=== PATIENT | male | born 1985 | race Caucasian/White ===

== ENCOUNTER → 2025-05-08 11:02 | Outpatient (CLI) | payer OTHER, SELFPAY ==
[2025-05-08 11:45] LABS: Add Manual Diff / Slide Review NO; Hematocrit 43.1 % (41-53); Hemoglobin 15.4 g/dL (13.5-17.5); Lymphocytes Absolute Auto 1200 /uL (1100-4500); Mean Corpuscular HGB Conc 35.7 % (30-36); Mean Corpuscular Hemoglobin 32.3 PG (26-34); Mean Corpuscular Volume 90.4 fL (80-100); Platelet Count 280 X10^3/uL (150-400)
[2025-05-08 12:02] LABS: Hemoglobin A1C% w Est Avg Glu 4.9 % (4.0-6.0)
[2025-05-08 12:18] LABS: Alanine Aminotransferase 40 IU/L (<50); Albumin 4.9 g/dL (3.5-5.0); Albumin Globulin Ratio 1.8 (1.0-2.8); Alkaline Phosphatase 57 U/L (38-126); Blood Urea Nitrogen 13 mg/dL (9-20); Calcium 9.7 mg/dL (8.4-10.2); Carbon Dioxide 20 mmol/L (22-32); Chloride 106 mmol/L (98-107); Cholesterol 186 mg/dL (140-199); Estimated Glomerular Filt Rate > 60 mL/min (>60); Globulin 2.8 g/dL (1.7-4.1); Glucose 104 mg/dL (70-99); HDL Cholesterol 55 mg/dL (40-60); HEMOLYSIS < 15 (0-50); Potassium 4.5 mmol/L (3.4-5.1); Sodium 138 mmol/L (137-145); Total Protein 7.7 g/dL (6.3-8.2); Triglycerides 220 mg/dL (35-150)
[2025-05-08 12:45] LABS: Thyroid Stimulating Hormone 1.31 uIU/mL (0.47-4.68)
[2025-05-08 15:22] LABS: Microalbumi Creatinin Ratio Ur 4.0 ug/mg CR (<30)
== END ==
PROVIDERS: PCP Student in an Organized Health Care Education/Training Program; Referring Provider Student in an Organized Health Care Education/Training Program; Visit Provider Student in an Organized Health Care Education/Training Program
DX: E78.00 Pure hypercholesterolemia, unspecified (principal); Z13.1 Encounter for screening for diabetes mellitus; I10 Essential (primary) hypertension
CPT/HCPCS: 36415; 80053; 80061; 82043; 82570; 83036; 84443; 85025

== ENCOUNTER → 2025-06-16 14:31 | Outpatient (CLI) | payer OTHER, SELFPAY ==
--- NOTE | 2025-06-16 14:32 | DI.ECHO.S_ITS ---
[facility] : : [address] : : [place] : : [id number] : : Phone: [phone] Echocardiogram Report + + :Name: BRENT MILLARD Study Date: 06/16/2025 Height: 73 in : :[facility] ReadingLocation: Weight: 230 lb : : Gender: Male BSA: 2.3 m2 : :: 1985 Age: 39 yrs BP: 162/109 mmHg: :Reason For Study: HYPERTENSION : :Ordering Physician: : :STEFFANY BERNSTEIN Performed By: Justin Orourke : :Referring: STEFFANY BERNSTEIN : + + Interpretation Summary The left ventricle is normal in size. The ejection fraction is estimated to be 50-55%. There are no focal wall motion abnormalities. Diastolic parameters suggest probable normal left ventricular diastolic function and normal filling pressures. The right ventricle is normal in size and function. The left atrial size is normal. There is no significant valvular heart disease. The aortic root is mildly dilated. The ascending aorta is mild-moderately enlarged. Procedure: A two-dimensional transthoracic echocardiogram with color flow and Doppler was performed. The study quality was technically adequate. There is no prior echocardiogram noted for this patient. The patient was in normal sinus rhythm during the exam. Left Ventricle: The left ventricle is normal in size. There is normal left ventricular wall thickness. There is no ventricular septal defect visualized. The ejection fraction is estimated to be 50-55%. There are no focal wall motion abnormalities. Diastolic parameters suggest probable normal left ventricular diastolic function and normal filling pressures. Right Ventricle: The right ventricle is normal in size and function. Atria: The left atrial size is normal. Right atrial size is normal. There is no Doppler evidence for an interatrial shunt. Mitral Valve: The mitral valve leaflets appear normal. There is no evidence of stenosis, fluttering, or prolapse. There is trace mitral regurgitation. Aortic Valve: The aortic valve is trileaflet. The aortic valve opens well. No aortic regurgitation is present. Tricuspid Valve: The tricuspid valve leaflets are thin and pliable. No tricuspid regurgitation. Pulmonic Valve: The pulmonic valve is not well seen, but is grossly normal. There is trace pulmonic regurgitation. There is no significant valvular heart disease. Great Vessels: The aortic root is mildly dilated. The ascending aorta is mild-moderately enlarged. The pulmonary artery is normal size. The IVC is of normal diameter and collapses greater than 50% with a sniff. This suggests a low right atrial pressure of 3 mm Hg. Pericardium/ Pleura There is no pericardial effusion. There is no pleural effusion. MMode/2D Measurements & Calculations LVIDd: 4.7 cm LVOT diam: 2.3 cm LVIDs: 3.4 cm Ao root diam: 3.8 cm FS: 29.0 % asc Aorta Diam: 4.0 cm EPSS: 0.64 cm Ao Arch Diam (Prox Trans): 1.9 cm IVSd: 0.91 cm LVPWd: 1.0 cm LV mckay. diameter/BSA (cm/m^2): 2.1 LV sys. diameter/BSA (cm/m^2): 1.5 LA A2 area: 16.7 cm2 RA long axis: 4.1 cm LA A4 area: 18.8 cm2 RA area: 12.2 cm2 LA length (vol): 5.1 cm RA vol: 30.9 ml LA vol: 52.3 ml RA : 13.5 ml/m2 LA vol index: 22.9 ml/m2 IVC diam: 1.8 cm RVD1 (basal): 3.5 cm RVD2 (mid): 2.9 cm TAPSE: 2.3 cm Doppler Measurements & Calculations Ao V2 max: 124.5 cm/sec LVOT Max Tesfaye: 116.1 cm/sec Ao V2 mean: 83.2 cm/sec LV V1 max P.4 mmHg Ao max P.2 mmHg LV V1 VTI: 26.0 cm Ao mean P.2 mmHg DEJAH(I,D): 4.0 cm2 Ao V2 VTI: 26.9 cm DEJAH(V,D): 3.9 cm2 sev ratio: 0.97 DEJAH indexed to BSA (cm^2/m^2): 1.8 MV E max tesfaye: 73.4 cm/sec PA V2 max: 97.8 cm/sec MV A max tesfaye: 49.7 cm/sec PA V2 mean: 77.0 cm/sec MV E/A: 1.5 PA mean P.5 mmHg Med Peak E' Tesfaye: 8.3 cm/sec PA pr(Accel): 32.8 mmHg E/E' med: 8.8 Lat Peak E' Tesfaye: 12.7 cm/sec E/E' lat: 5.8 E/e' average: 7.3 MV dec time: 0.19 sec SV(LVOT): 108.5 ml Reading Physician:10:33 PM
== END ==
LOC: ECHO 14:32
PROVIDERS: PCP Student in an Organized Health Care Education/Training Program; Referring Provider Student in an Organized Health Care Education/Training Program; Visit Provider Student in an Organized Health Care Education/Training Program
DX: I77.810 Thoracic aortic ectasia (principal); I77.89 Other specified disorders of arteries and arterioles; I10 Essential (primary) hypertension
CPT/HCPCS: 93306